=== PATIENT | female | born 1980 | race Caucasian/White ===

== ENCOUNTER → 2019-07-05 | Day surgery (SDC) | payer BC ==
[2016-08-16 23:05] VITALS: BP 147/102
[~2019-07-05] MED LIST: AMOXICILLIN875 MG PO; EPIPEN 2-PAK1 MG/ML MR; LEVOTHYROXINE PO; PRILOSEC 20MG20 MG PO
== END ==
LOC: MSO 09:12
DX: Z12.11 Encounter for screening for malignant neoplasm of colon (principal); Z80.0 Family history of malignant neoplasm of digestive organs; D12.0 Benign neoplasm of cecum; D12.3 Benign neoplasm of transverse colon; D12.5 Benign neoplasm of sigmoid colon; I10 Essential (primary) hypertension; Z79.899 Other long term (current) drug therapy; F17.210 Nicotine dependence, cigarettes, uncomplicated; K21.9 Gastro-esophageal reflux disease without esophagitis; Z85.850 Personal history of malignant neoplasm of thyroid; E89.0 Postprocedural hypothyroidism; Z82.49 Family history of ischemic heart disease and other diseases of the circulatory system; Z88.1 Allergy status to other antibiotic agents; Z88.8 Allergy status to other drugs, medicaments and biological substances; R06.83 Snoring; E78.2 Mixed hyperlipidemia; E66.9 Obesity, unspecified; Z68.41 Body mass index [BMI] 40.0-44.9, adult
CPT/HCPCS: 00811; J2704; J7120

== ENCOUNTER 2022-04-08 13:52 | Outpatient (RCR) | payer BC | END 2022-05-01 | disposition home or self-care (01) | LOC: PT | DX: M25.561 Pain in right knee (principal) ==

== ENCOUNTER 2022-04-30 14:53 | Outpatient (RCR) | payer BC | END 2022-05-01 | LOC: PT | DX: M25.562 Pain in left knee (principal) ==

== ENCOUNTER 2023-04-01 16:21 | Outpatient (RCR) | payer BC | END 2023-05-01 | disposition home or self-care (01) | LOC: PT | DX: M17.11 Unilateral primary osteoarthritis, right knee (principal); Z96.651 Presence of right artificial knee joint ==